=== PATIENT | male | born 1960 | race Caucasian/White ===

== ENCOUNTER 2020-05-27 17:24 | Emergency (ER) | payer BC, SELFPAY ==
[~2020-05-27] VITALS: Ht 175.3 cm; Wt 117.9 kg
[2020-05-27 17:30] VITALS: BP_SYST 163
[2020-05-27 18:47] LABS: BASOPHILS % (AUTO) 0.4 % (0.0-2.0); EOSINOPHILS # (AUTO) 0.1 K/uL (0.0-0.4); EOSINOPHILS % (AUTO) 0.4 % (0.0-4.0); HEMATOCRIT 45.2 % (36-54); HEMOGLOBIN 14.6 g/dL (14.0-18.0); LYMPHOCYTES % (AUTO) 17.6 % (20.5-51.5); MEAN CORPUSCULAR HEMOGLOBIN 29 pg (27-31); MEAN CORPUSCULAR HGB CONC 32 % (32-36); MEAN CORPUSCULAR VOLUME 88 fL (79.0-98.0); MONOCYTES # (AUTO) 0.8 K/uL (0.0-1.0); MONOCYTES % (AUTO) 7.2 % (1.7-9.3); NEUTROPHILS # (AUTO) 8.6 K/uL (1.8-7.7); NEUTROPHILS % (AUTO) 74.4 % (40.0-70.0); PLATELET COUNT (AUTO) 222 K/uL (130-430); RED BLOOD CELL COUNT(AUTO) 5.14 MIL/uL (4.2-6.2); RED CELL DISTRIBUTION WIDTH 13.3 % (9.0-15.0); WHITE BLOOD COUNT (AUTO) 11.6 K/uL (4.8-10.8)
[2020-05-27 19:02] LABS: CALCIUM 9.2 mg/dL (8.4-11.0); CREATININE 0.94 mg/dL (0.55-1.30); POTASSIUM 3.7 mmol/L (3.5-5.1)
[2020-05-27 19:05] LABS: PROTHROMBIN TIME 9.7 SECS (9.5-12.5)
[2020-05-27 19:08] LABS: TOTAL BILIRUBIN 0.8 mg/dL (0.0-1.0)
[2020-05-27] MEDS ORDERED: IOHEXOL 100 ML IV ONE (19:42)
[2020-05-27] MEDS ORDERED: PIPERACILLIN/TAZO 3.375 GM in NS 50 ML IV ONE (21:15)
[2020-05-27] MEDS ORDERED: PIPERACILLIN/TAZOBACTAM 3.375 GM/VIAL (ZOSYN) IV ONE (21:59)
[2020-05-27] MEDS ORDERED: AMIO100T4 PO (23:31)
[2020-05-27 23:50] VITALS: BP_SYST 149
== END 2020-05-27 23:40 | disposition short-term general hospital (02) ==
LOC: SED 17:24
DX: K63.1 Perforation of intestine (nontraumatic) (principal); I10 Essential (primary) hypertension; Z20.828 Contact with and (suspected) exposure to other viral communicable diseases
CPT/HCPCS: 36415; 74177; 80053; 85025; 85610; 85730; 87040; 96365; 99285; J2543; Q9967; U0003